=== PATIENT | female | born 1985 | race Caucasian/White ===

== ENCOUNTER 2017-07-14 17:22 | Emergency (ER) | payer MEDICAID ==
[~2017-07-14] VITALS: Ht 162.6 cm; Wt 90.4 kg
[~2017-07-14 17:22] MED LIST: IBUP-1984 PO; NO HOME MEDS; PHEN-873 PO; ZOF4T PO
[2017-07-14] MEDS ORDERED: BUPIVAcaine/PF 2.5 mg/ml (0.25%) 30ml vial IJ ONE (17:45)
[2017-07-14 17:55] VITALS: BP 117/67
[2017-07-14] MEDS ORDERED: BUPIVAcaine/PF 2.5mg/ml (0.25%) 10ml vial IJ ONE (17:55)
[2017-07-14] MEDS ORDERED: HYDR-3965 PO (18:27)
[2017-07-14] MEDS ORDERED: BACDS PO (18:27)
== END 2017-07-14 18:41 | disposition home or self-care (01) ==
LOC: ER 17:23
DX: K08.89 Other specified disorders of teeth and supporting structures (principal); Z88.0 Allergy status to penicillin; Z88.8 Allergy status to other drugs, medicaments and biological substances; Z87.442 Personal history of urinary calculi
CPT/HCPCS: 64400; 99284; J3490

== ENCOUNTER 2018-09-27 20:02 | Emergency (ER) | payer MEDICAID ==
[~2018-09-27] VITALS: Ht 162.6 cm; Wt 98.2 kg
[~2018-09-27 20:02] MED LIST changes: +PHEN-786 PO; -PHEN-873 PO
[2018-09-27 20:10] VITALS: BP 118/75
--- NOTE | 2018-09-27 20:17 | NUR ---
JOSE ENRIQUE NOTIFIED. CASE #[id number]
== END 2018-09-27 21:11 | disposition home or self-care (01) ==
LOC: ER 20:05
DX: S09.90XA Unspecified injury of head, initial encounter (principal); H92.22 Otorrhagia, left ear; Z88.0 Allergy status to penicillin; Z88.8 Allergy status to other drugs, medicaments and biological substances; Z79.899 Other long term (current) drug therapy; W50.0XXA Accidental hit or strike by another person, initial encounter; Y93.89 Activity, other specified; Y92.89 Other specified places as the place of occurrence of the external cause; Y99.8 Other external cause status
CPT/HCPCS: 99281

== ENCOUNTER 2021-03-16 00:09 | Emergency (ER) | payer MEDICAID ==
[~2021-03-16] VITALS: Ht 167.6 cm; Wt 81.8 kg
[2021-03-16 00:12] VITALS: BP 119/90
== END 2021-03-16 00:38 ==
LOC: ER 00:10
DX: F23 Brief psychotic disorder (principal); H10.213 Acute toxic conjunctivitis, bilateral; H57.13 Ocular pain, bilateral; E78.00 Pure hypercholesterolemia, unspecified; I10 Essential (primary) hypertension; E11.65 Type 2 diabetes mellitus with hyperglycemia; Z79.4 Long term (current) use of insulin; Z88.0 Allergy status to penicillin; Z87.442 Personal history of urinary calculi; Z88.1 Allergy status to other antibiotic agents; Z79.899 Other long term (current) drug therapy
CPT/HCPCS: 82948; 99283

== ENCOUNTER 2021-06-07 20:29 | Emergency (ER) | payer MEDICAID ==
[~2021-06-07] VITALS: Ht 167.6 cm; Wt 86.6 kg
[2021-06-07 21:42] VITALS: BP 115/75
[2021-06-07 22:47] LABS: CLARITY,URINE SLIGHTLY CLOUDY (Clear); COLOR,URINE YELLOW (Yellow); GLUCOSE, URINE NEGATIVE (Neg); KETONES,URINE NEGATIVE (Neg); LEUKOCYTE ESTERASE ,URINE MODERATE (Neg); NITRITES, URINE NEGATIVE (Neg); OCCULT BLOOD,URINE LARGE (Neg); PROTEIN,URINE 100 mg/dl (Neg); UA COLLECTION TYPE CLN CATCH MIDSTREAM; UROBILINOGEN,URINE 0.2 E.U/dL (0.2-1.0)
[2021-06-07 22:48] LABS: URINE HCG NEGATIVE (NEG)
[2021-06-07 22:53] LABS: WBC,URINE 30-50 /HPF (0-4)
[2021-06-07 22:54] LABS: BACTERIA,URINE 2+ /HPF (Neg); MUCUS STRANDS NONE SEEN /LPF (Neg); SQUAMOUS EPITHELIAL CELL,UR FEW /LPF (FEW); WBC CLUMPS,URINE MODERATE /HPF (NEGATIVE)
[2021-06-07 23:11] LABS: BASOPHILS % (AUTO) 0.5 % (0-1); EOSINOPHILS # (AUTO) 0.2 X10'3 (0-0.9); EOSINOPHILS % (AUTO) 2.4 % (0-6); HEMATOCRIT 37.8 % (35.0-45.0); HEMOGLOBIN 12.6 g/dl (12.0-16.0); LYMPHOCYTES # (AUTO) 1.3 X10'3 (1.1-4.8); LYMPHOCYTES % (AUTO) 14.4 % (21-51); MEAN CORPUSCULAR HEMOGLOBIN 27.5 PG (27.0-31.0); MEAN CORPUSCULAR HGB CONC 33.3 g/dL (33.0-36.5); MEAN CORPUSCULAR VOLUME 82.5 FL (78-98); MEAN PLATELET VOLUME 8.4 FL (7.4-10.4); MONOCYTES # (AUTO) 0.7 X10'3 (0-0.9); MONOCYTES % (AUTO) 7.1 % (2-12); NEUTROPHILS # (AUTO) 7.1 X10'3 (1.8-7.7); NEUTROPHILS % (AUTO) 75.6 % (42-75); PLATELET COUNT 252 X10'3 (140-440); RED BLOOD COUNT 4.58 X10'6 (4.20-5.60); RED CELL DISTRIBUTION WIDTH 15.6 % (11.5-14.5); WHITE BLOOD COUNT 9.3 X10'3 (4.5-11.0)
[2021-06-07 23:21] LABS: ALANINE AMINOTRANSFERASE 21 U/L (12-78); ALBUMIN 3.5 G/DL (3.4-5.0); ALBUMIN/GLOBULIN RATIO 0.9 (1.1-1.5); ALKALINE PHOSPHATASE 80 IU/L (46-116); ANION GAP 10 (8-16); ASPARTATE AMINO TRANSFERASE 11 U/L (10-37); BILIRUBIN,DIRECT 0.1 MG/DL (0-0.3); BILIRUBIN,TOTAL 0.2 MG/DL (0.1-1.0); BLOOD UREA NITROGEN 11 MG/DL (7-18); BUN/CREATININE RATIO 14.7 (6.6-38.0); CALCIUM 9.2 MG/DL (8.5-10.1); CHLORIDE 104 MMOL/L (99-107); CREATININE 0.75 MG/DL (0.40-0.90); GLUCOSE 102 MG/DL (70-104); LIPASE 91 U/L (73-393); POTASSIUM 3.9 MMOL/L (3.5-5.1); SODIUM 139 MMOL/L (135-145); TOTAL CARBON DIOXIDE 25.4 MMOL/L (24-32); TOTAL PROTEIN 7.6 G/DL (6.4-8.2); eGFR 89 ML/MIN
[2021-06-08] MEDS ORDERED: sulfamethoxazole/trimethoprim DS (800/160mg) tablet PO ONE
[2021-06-08] MEDS ORDERED: SULF1TAB49 PO (00:01)
== END 2021-06-08 00:37 | disposition home or self-care (01) ==
LOC: ER 20:30
DX: N39.0 Urinary tract infection, site not specified (principal); R10.32 Left lower quadrant pain; E78.00 Pure hypercholesterolemia, unspecified; I10 Essential (primary) hypertension; E11.9 Type 2 diabetes mellitus without complications; Z87.442 Personal history of urinary calculi; Z87.440 Personal history of urinary (tract) infections; Z88.0 Allergy status to penicillin; Z88.1 Allergy status to other antibiotic agents; Z79.2 Long term (current) use of antibiotics; Z79.899 Other long term (current) drug therapy
CPT/HCPCS: 36415; 74176; 80048; 80076; 81001; 81025; 83690; 85025; 87077; 87088; 87186; 99284

== ENCOUNTER 2022-03-04 17:30 | Emergency (ER) | payer MEDICAID ==
[~2022-03-04] VITALS: Ht 162.6 cm; Wt 85.9 kg
[2022-03-04 18:29] LABS: BASOPHILS # (AUTO) 0.1 X10'3 (0-0.2); BASOPHILS % (AUTO) 0.9 % (0-1); EOSINOPHILS # (AUTO) 0.2 X10'3 (0-0.9); EOSINOPHILS % (AUTO) 2.7 % (0-6); HEMATOCRIT 37.6 % (35.0-45.0); HEMOGLOBIN 12.2 g/dl (12.0-16.0); LYMPHOCYTES # (AUTO) 1.8 X10'3 (1.1-4.8); LYMPHOCYTES % (AUTO) 26.4 % (21-51); MEAN CORPUSCULAR HEMOGLOBIN 25.8 PG (27.0-31.0); MEAN CORPUSCULAR HGB CONC 32.4 g/dL (33.0-36.5); MEAN CORPUSCULAR VOLUME 79.5 FL (78-98); MEAN PLATELET VOLUME 8.4 FL (7.4-10.4); MONOCYTES # (AUTO) 0.5 X10'3 (0-0.9); MONOCYTES % (AUTO) 7.4 % (2-12); NEUTROPHILS # (AUTO) 4.4 X10'3 (1.8-7.7); NEUTROPHILS % (AUTO) 62.6 % (42-75); PLATELET COUNT 285 X10'3 (140-440); RED BLOOD COUNT 4.73 X10'6 (4.20-5.60); RED CELL DISTRIBUTION WIDTH 14.8 % (11.5-14.5)
[2022-03-04 18:42] LABS: CLARITY,URINE SLIGHTLY CLOUDY (Clear); COLOR,URINE YELLOW (Yellow); GLUCOSE, URINE NEGATIVE (Neg); KETONES,URINE NEGATIVE (Neg); LEUKOCYTE ESTERASE ,URINE MODERATE (Neg); NITRITES, URINE NEGATIVE (Neg); OCCULT BLOOD,URINE NEGATIVE (Neg); PROTEIN,URINE NEGATIVE (Neg)
[2022-03-04 18:42] LABS: ALANINE AMINOTRANSFERASE 32 U/L (12-78); ALBUMIN 3.5 G/DL (3.4-5.0); ALBUMIN/GLOBULIN RATIO 0.8 (1.1-1.5); ALKALINE PHOSPHATASE 100 IU/L (46-116); ANION GAP 9 (8-16); ASPARTATE AMINO TRANSFERASE 29 U/L (10-37); BILIRUBIN,TOTAL 0.3 MG/DL (0.1-1.0); BLOOD UREA NITROGEN 7 MG/DL (7-18); BUN/CREATININE RATIO 10.3 (6.6-38.0); CHLORIDE 108 MMOL/L (99-107); CREATININE 0.68 MG/DL (0.40-0.90); GLUCOSE 90 MG/DL (70-104); SODIUM 140 MMOL/L (135-145); TOTAL CARBON DIOXIDE 22.6 MMOL/L (24-32); TOTAL PROTEIN 7.8 G/DL (6.4-8.2); eGFR > 90 ML/MIN
[2022-03-04 18:46] LABS: UA COLLECTION TYPE CLN CATCH MIDSTREAM
[2022-03-04 18:52] LABS: TRICHOMONAS,URINE FEW /HPF (NEGATIVE)
[2022-03-04 18:54] LABS: BACTERIA,URINE 1+ /HPF (Neg); MUCUS STRANDS FEW /LPF (Neg); RBC,URINE 0-2 /HPF (0-2); RENAL CELLS, URINE FEW /HPF; SQUAMOUS EPITHELIAL CELL,UR MODERATE /LPF (FEW); TRANSITIONAL EPI CELLS,URINE FEW /HPF; WBC,URINE 20-30 /HPF (0-4)
[2022-03-04] MEDS ORDERED: ibuprofen tablet 400 MG TABLET PO ONE (19:20)
[2022-03-04] MEDS ORDERED: ondansetron 4mg rapidly disintigrating tab PO ONE (19:20)
[2022-03-04] MEDS ORDERED: diphenhydrAMINE 50 mg/ml inj IM ONE (19:20)
[2022-03-04] MEDS: dexamethasone 4mg tablet PO ONE ×2 (19:25→19:30)
[2022-03-04] MEDS ORDERED: TINIDAZOLE 500 MG TABLET PO ONE (20:10)
[2022-03-04] MEDS ORDERED: DOXY100C76 PO (20:51)
[2022-03-04 21:02] VITALS: BP 124/80
== END 2022-03-04 21:03 | disposition home or self-care (01) ==
LOC: ER 17:32
DX: A59.03 Trichomonal cystitis and urethritis (principal); I10 Essential (primary) hypertension; E78.00 Pure hypercholesterolemia, unspecified; E11.9 Type 2 diabetes mellitus without complications; Z88.0 Allergy status to penicillin; Z88.8 Allergy status to other drugs, medicaments and biological substances; Z79.2 Long term (current) use of antibiotics
CPT/HCPCS: 36415; 80053; 81001; 85025; 87088; 96372; 99284; J1200

== ENCOUNTER 2022-05-02 08:29 | Emergency (ER) | payer MEDICAID ==
[~2022-05-02] VITALS: Ht 162.6 cm; Wt 75.0 kg
[2022-05-02 08:37] VITALS: BP 121/90
[2022-05-02] MEDS ORDERED: PRED20TA PO (10:47)
[2022-05-02] MEDS ORDERED: IBUP-1986 PO (10:47)
[2022-05-02] MEDS ORDERED: ketorolac trometh inj. 60 MG/2 ML VIAL IM ONE (10:50)
== END 2022-05-02 11:15 | disposition home or self-care (01) ==
LOC: ER 08:30
DX: G89.29 Other chronic pain (principal); M79.89 Other specified soft tissue disorders; E78.00 Pure hypercholesterolemia, unspecified; I10 Essential (primary) hypertension; E11.9 Type 2 diabetes mellitus without complications; Z87.442 Personal history of urinary calculi; Z87.440 Personal history of urinary (tract) infections; Z88.0 Allergy status to penicillin; Z88.1 Allergy status to other antibiotic agents; Z79.899 Other long term (current) drug therapy
CPT/HCPCS: 96372; 99283; J1885

== ENCOUNTER 2023-05-28 21:40 | Emergency (ER) | payer MEDICAID ==
[~2023-05-28] VITALS: Ht 165.1 cm; Wt 96.4 kg
[~2023-05-28 21:40] MED LIST changes: +IBUP-1986 PO
[2023-05-29] MEDS ORDERED: CYCL-1 PO
[2023-05-29] MEDS ORDERED: NAPR-56 PO
[2023-05-29 00:52] VITALS: TEMP 97.7
[2023-05-29] MEDS ORDERED: naproxen 500mg tablet PO ONE (01:25)
[2023-05-29] MEDS ORDERED: naproxen 500mg tablet ONE (01:25)
[2023-05-29 01:31] VITALS: BP 117/76; PULSE 67; RESP 14; O2SAT 99
== END 2023-05-29 01:32 | disposition home or self-care (01) ==
LOC: ER 21:40
DX: S23.41XA Sprain of ribs, initial encounter (principal); X58.XXXA Exposure to other specified factors, initial encounter; Y93.89 Activity, other specified; Y92.89 Other specified places as the place of occurrence of the external cause; Y99.8 Other external cause status
CPT/HCPCS: 71045; 71100; 99284

== ENCOUNTER 2024-08-14 21:19 | Emergency (ER) | payer MEDICAID ==
[~2024-08-14] VITALS: Ht 162.6 cm; Wt 79.2 kg
[~2024-08-14 21:19] MED LIST changes: +CYCL-1 PO
[2024-08-14 21:50] VITALS: BP 134/86; PULSE 74; RESP 17; O2SAT 97
[2024-08-15] MEDS ORDERED: KEN0.1O TOP (01:34)
[2024-08-15 01:46] VITALS: TEMP 98.8
[2024-08-15] MEDS: triamcinolone acetonide 40mg/ml inj IM ONE (02:02)
== END 2024-08-15 02:05 | disposition home or self-care (01) ==
LOC: ER 21:20
DX: L25.9 Unspecified contact dermatitis, unspecified cause (principal); L40.9 Psoriasis, unspecified; E78.00 Pure hypercholesterolemia, unspecified; E11.9 Type 2 diabetes mellitus without complications; I10 Essential (primary) hypertension; Z88.0 Allergy status to penicillin; Z88.8 Allergy status to other drugs, medicaments and biological substances; Z79.899 Other long term (current) drug therapy; Z87.440 Personal history of urinary (tract) infections
CPT/HCPCS: 96372; 99283; J3301

== ENCOUNTER 2025-04-14 13:25 | Emergency (ER) | payer MEDICAID ==
[~2025-04-14] VITALS: Ht 162.6 cm; Wt 75.4 kg
[~2025-04-14 13:25] MED LIST changes: +KEN0.1O TOP
[2025-04-14 13:36] VITALS: TEMP 97.5
--- NOTE | 2025-04-14 15:29 | Physician Documentation ---
History of Present Illness ~ Chief Complaint: Mouth Pain Stated Complaint: MOUTH SWELLING Time Seen by MD: 14:57 Primary Medical Doctor: Jez Richardson Family [facility] This is a 39-year-old female who presents with pain and swelling to her right upper mouth, patient reports pain has been present for the past two days, patient reports history of chipped tooth in the area. Patient reports she does have dental follow up though it is not for several weeks. Patient reports no fever, no difficulty swallowing, no difficulty breathing. Reports no other acute symptoms or concerns. Medication Reconciliation Allergies: Coded Allergies: Penicillins (Verified Allergy, Unknown, HIVES, 04/14/25) metronidazole (Verified Allergy, Unknown, 04/14/25) Scheduled Clindamycin (Cleocin ), 3 CAP PO Q8H Cyclobenzaprine* (Cyclobenzaprine*), 1 TAB PO TID Ibuprofen (Ibuprofen), 1 TAB PO Q8H Ibuprofen (Ibuprofen), 1 TAB PO Q8H Ibuprofen* (Motrin*), 400 MG PO Q8H Ondansetron ODT* (Zofran ODT*), 4 MG PO Q6H Triamcinolone Acetonide 0.1% Crm* (Kenalog 0.1% Crm*), 1 APPLIC TOP Q12H Scheduled PRN Phenazopyridine Hcl (Pyridium tablet), 1 TAB PO Q8H PRN for dysuria Miscellaneous Medications Home Med List (No Home Medications), (Reported) Past Medical History Past Medical History: High Cholesterol, Hypertension, Kidney Stones, UTI, Diabetes, *MUSCULOSKELETAL*, Psoriasis, *PSYCH* Past Surgical History: no surgical history Alcohol Use: None Drug Use: none Lives with: Family Lives In: Home Occupation: employed Review of Systems ROS As stated above in the HPI, otherwise all systems are reviewed and negative. Physical Exam Vital Signs: Temperature: 97.5, Source: Temporal, Heart Rate: 74, Respiratory Rate: 16, BP: 114/70, Pulse Oximetry: 100, Weight: 75.400 Oxygen Flow Rate: 0 Physical Exam VITALS: Reviewed and as above. GENERAL: Alert, nontoxic appearing, no apparent distress. HEENT: Severe decayed to left upper premolars, gingiva at base of left upper premolars erythematous, no fluctuance, no discharge. 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 Ketorolac Trometh 15mg/Ml Vial (Toradol (04/14/25 15:20) Clindamycin Capsule (Cleocin Capsule) (04/14/25 15:25) Medications Received in ER Medications (Trade) Dose Ordered Sig/Concetta Route PRN Reason Start Time Stop Time Status Last Admin Dose Admin (Toradol injection) 15 mg ONCE ONCE IM 04/14/25 15:20 04/14/25 15:27 DC 04/14/25 15:43 15 MG (Cleocin capsule) 450 mg ONCE ONCE PO 04/14/25 15:25 04/14/25 15:26 DC 04/14/25 15:42 450 MG Vital Signs 04/14/25 04/14/25 04/14/25 13:36 15:43 15:51 Temp 97.5 Pulse 74 50 Resp 16 16 16 B/P (MAP) 114/70 100/68 Pulse Ox 100 98 O2 Flow Rate 0 Medical Decision Making Findings This well appearing 39-year-old female presented with dental pain to the premolars. Based on history and physical exam I have low clinical suspicion for peritonsillar abscess, uvulitis, deep tissue space infection of the head/neck, or impending airway compromise. There was no submandibular swelling or elevation of the tongue, the uvula was midline, patient is able to swallow fluids and secretion without difficulty, there is no increased work of breathing or noisy breathing. Based on presentation I am concerned for odontogenic infection and antibiotic treatment with clindamycin. Pain control with non-narcotic medications is appropriate at this time. Patient is otherwise well-appearing and appropriate for outpatient follow up with dentist and primary care. Patient provided home care instructions, return to care precautions, and follow up instructions with the. Tooth Diff. Dx: Considerations: Include: Alveolar fracture, Aveolar osteitis, ANUG, Facial cellulitis, Periapical abscess, Periodontal abscess, Pulpitis, Trigeminal neuralgia, Tooth-avulsion, Tooth-eruption, Tooth-fracture, Tooth- subluxation, Other Throat Diff Dx: Considerations: Include: Brodie's angina, Peritonsillar abscess, Peritonsillar cellulitis Departure Time of Disposition: : Disposition: 01 HOME / SELF CARE / HOMELESS Impression: Primary Impression: Pain, dental Condition: Improved Discharge Instructions: Dental Abscess, [id number] Additional Instructions: Please take antibiotics as prescribed. You may use the ibuprofen that has been prescribed for pain, take this medication with food to avoid stomach upset, do n ot take his medication for the next 12 hours as you received a Toradol injection in the emergency department which replaces this medication. You may use [id number] Tylenol as directed by [id number] packaging as needed for breakthrough pain and or fever. Follow up as soon as possible with a dentist. Please follow up with your primary care provider in the next few days. Please return to the emergency department for any new or worsening concerning symptoms including but not limited to fever over 100.4 that does not lower with the it isn't finished Tylenol, or if you develop difficulty swallowing or breathing. Referrals: NO PRIMARY CARE PROVIDER (PCP) Prescriptions Ibuprofen (Ibuprofen) 800 Mg Tablet 1 TAB PO Q8H for pain for 10 Days, #30 TAB 0 Refills Prov: MONA ROACH 04/14/25 Clindamycin (Cleocin ) 150 Mg Capsule 3 CAP PO Q8H for 10 Days, #90 CAP Prov: MONA ROACH 04/14/25 Education Educated: Patient Educated regarding: diagnosis, treatment, prognosis, need for follow up Signature Scribe Signature: No scribe Attestation: The note accurately reflects work and decisions made by me.MAKENNA Youssef 04/14/25 21:27 MONA ROACH Apr 14, 2025 15:29
[2025-04-14] MEDS ORDERED: CLIN150C2 PO (15:31)
[2025-04-14] MEDS ORDERED: IBUP-1986 PO (15:31)
[2025-04-14] MEDS: ketorolac trometh 15mg/ml vial 15 MG/ML ML IM ONE (15:43)
[2025-04-14 15:51] VITALS: BP 100/68; PULSE 50; RESP 16; O2SAT 98
== END 2025-04-14 15:54 | disposition home or self-care (01) ==
LOC: ER 13:26
DX: K08.89 Other specified disorders of teeth and supporting structures (principal); E11.9 Type 2 diabetes mellitus without complications; E78.00 Pure hypercholesterolemia, unspecified; I10 Essential (primary) hypertension; Z88.0 Allergy status to penicillin; Z88.1 Allergy status to other antibiotic agents; Z88.8 Allergy status to other drugs, medicaments and biological substances
CPT/HCPCS: 96372; 99283; J1885

== ENCOUNTER 2025-07-03 12:43 | Emergency (ER) | payer MEDICAID ==
[~2025-07-03] VITALS: Ht 162.6 cm; Wt 70.2 kg
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
--- NOTE | 2025-07-03 13:51 | RADIOLOGY REPORT ---
DI HAND, COMPLETE (3VW MIN), INDICATION: HAND PAIN TECHNICAL DATA: Frontal, oblique and lateral views were obtained of the left hand. COMPARISON: None FINDINGS: Comminuted fracture at the distal radius. Joint spaces are maintained. Alignment is anatomic. Soft tissues are within normal limits. IMPRESSION: Comminuted fracture at the distal radius.
--- NOTE | 2025-07-03 13:52 | RADIOLOGY REPORT ---
DI FOREARM,INCL.ONE JOINT, INDICATION: ARM PAIN TECHNICAL DATA: Frontal and lateral views were obtained of the left forearm. COMPARISON: None FINDINGS: Comminuted fracture at the distal radius. Soft tissues are normal. IMPRESSION: Comminuted fracture at the distal radius.
[2025-07-03] MEDS ORDERED: IBUP-864 PO (14:18)
[2025-07-03 15:08] VITALS: BP 137/100; PULSE 88; RESP 16; TEMP 98.9; O2SAT 97
== END 2025-07-03 14:41 | disposition home or self-care (01) ==
LOC: ER 12:43
DX: S52.592A Other fractures of lower end of left radius, initial encounter for closed fracture (principal); E11.9 Type 2 diabetes mellitus without complications; E78.00 Pure hypercholesterolemia, unspecified; I10 Essential (primary) hypertension; Z88.0 Allergy status to penicillin; Z88.1 Allergy status to other antibiotic agents; Z87.442 Personal history of urinary calculi; Z87.440 Personal history of urinary (tract) infections; Z79.899 Other long term (current) drug therapy; W22.09XA Striking against other stationary object, initial encounter; Y93.89 Activity, other specified; Y92.89 Other specified places as the place of occurrence of the external cause; Y99.8 Other external cause status
CPT/HCPCS: 29125; 73090; 73130; 99284; A4565; A6449